=== PATIENT | male | born 1970 | race Caucasian/White ===

== ENCOUNTER 2019-10-22 11:07 | Emergency (ER) | payer BC ==
[~2019-10-22] VITALS: Ht 167.6 cm; Wt 127.6 kg
[2019-10-22 11:56] VITALS: BP 127/74
--- NOTE | 2019-10-22 13:00 | NUR ---
sudden onset of n/v/d x last night pt admits his son had similar symptoms this week---- abdominal pain -->10 episodes of watery stools, dry heaving now only
[2019-10-22] MEDS ORDERED: ONDANSETRON 4 MG ODT PO ONE (14:15)
[2019-10-22] MEDS ORDERED: DICYCLOMINE 20 MG/2 ML VIAL IM ONE (14:15)
[2019-10-22 15:06] VITALS: BP 132/78
--- NOTE | 2019-10-22 15:07 | NUR ---
Patient discharged with v/s stable. Written and verbal after care instructions given and explained. Patient alert, oriented and verbalized understanding of instructions. Ambulatory with steady gait. All questions addressed prior to discharge. ID band removed. Patient advised to follow up with PMD. Rx of bentyl/zofran given. Patient educated on indication of medication including possible reaction and side effects. Opportunity to ask questions provided and answered.
== END 2019-10-22 15:07 | disposition home or self-care (01) ==
LOC: MED 11:07
DX: A08.4 Viral intestinal infection, unspecified (principal); Z88.0 Allergy status to penicillin
CPT/HCPCS: 96372; 99283; J0500; Q0162

== ENCOUNTER 2020-01-27 07:43 | Emergency (ER) | payer BC ==
[~2020-01-27] VITALS: Ht 170.2 cm; Wt 129.3 kg
[2020-01-27 07:50] VITALS: BP 148/91
--- NOTE | 2020-01-27 07:54 | NUR ---
PT AMBULATED TO ER BED 04
--- NOTE | 2020-01-27 07:57 | NUR ---
49/M REPORTS ITCHING STARTING IN BOTH EYES X 2 DAYS. FELT LIKE "SOMETHING IN THE EYES" AND PT REPORTS RUBBING THE EYES. WOKE UP WITH CRUSTING TO BILATERAL EYELASHES. REPORTS PAIN 8/10 AT THIS TIME. STATES WATERY EYES AND ERYTHEMA TO EYES. DENIES VISUAL CHANGES. HX- DENIES
--- NOTE | 2020-01-27 08:01 | NUR ---
DR MOJICA EVALUATING PT AT BEDSIDE
[2020-01-27] MEDS ORDERED: TETRACAINE HCL/PF 0.5% OPTH 4 ML BTL OP ONE (08:05)
--- NOTE | 2020-01-27 08:24 | NUR ---
PT STATES RESOLUTION OF EYE PAIN AT THIS TIME.
--- NOTE | 2020-01-27 08:26 | NUR ---
Patient discharged with v/s stable. Written and verbal after care instructions given and explained. Patient alert, oriented and verbalized understanding of instructions. Ambulatory with steady gait. All questions addressed prior to discharge. ID band removed. Patient advised to follow up with PMD. Rx of POLYMYXIN B/TRIMETHOPRIM given. Patient educated on indication of medication including possible reaction and side effects. Opportunity to ask questions provided and answered.
[2020-01-27 08:28] VITALS: BP 148/91
== END 2020-01-27 08:26 | disposition home or self-care (01) ==
LOC: MED 07:43
DX: H10.9 Unspecified conjunctivitis (principal); B96.89 Other specified bacterial agents as the cause of diseases classified elsewhere; Z88.0 Allergy status to penicillin
CPT/HCPCS: 99283